=== PATIENT | male | born 1950 | race Caucasian/White ===

== ENCOUNTER → 2020-03-16 | Day surgery (SDC) | payer MEDICARE ==
[~2020-03-16] MED LIST: ACETAMINOPHEN TAB 325 MG TAB PO PRN; ALPRAZolam 0.25 MG TAB PO STA
[2020-03-16 09:45] LABS: Mean Platelet Volume 6.5; Platelet Count 396 k/uL (150-450)
[2020-03-16 09:54] LABS: INR 0.9 (<1.2); Prothrombin Time 9.6 sec (9.0-12.0)
--- NOTE | 2020-03-16 11:44 | P.OP ---
Date of Procedure: 03/16/20 Preoperative Diagnosis: liver mass, colorectal mass Procedure(s) Performed: ultrasound guided 18G core biopsy of right liver Anesthesia: local Surgeon: Karol Luciano Estimated Blood Loss (ml): 0 Pathology: other (4 18G core specimens sent for histopathology) Condition: stable Disposition: observation
[2020-03-16 15:40] VITALS: RESP 16
[2020-03-16 15:44] VITALS: BP 129/67; PULSE 75
--- NOTE | 2020-03-16 17:21 | US ---
EXAMINATION TYPE: US biopsy liver DATE OF EXAM: 03/16/2020 HISTORY: Colorectal cancer, liver mass DIRECTOR OF GLOBAL TALENT: Dr. Karol Luciano PROCEDURE: Preliminary preprocedure ultrasound imaging demonstrates hyperechoic mass involving the right posteri or liver. The procedure was discussed with the patient. The risks, complications, benefits, and alternatives we re discussed and any questions were answered. Informed consent was obtained. Patient was positioned left posterior oblique. Maximal barrier technique was utilized. The skin overl marco antonio a suitable path to the liver was localized using ultrasound, the skin was prepped and draped. Ul trasound was utilized with sterile technique. Lidocaine was used for local anesthesia. A skin loretta ma de with a scalpel. Under direct ultrasound guidance, a 17-gauge introducer needle was advanced into the right liver, the stylet was removed, and 18-gauge core biopsy needle was advanced into the liver and core biopsy obtained. For core biopsy specimens were obtained, and submitted in formalin for his topathology. Hemostasis was achieved. There was no immediate complication and patient remained in sta ble condition. Post procedure ultrasound imaging demonstrates no significant hemorrhage. IMPRESSION: Status post ultrasound-guided 18-gauge core biopsy of the liver. Pathology pending.
--- NOTE | 2020-03-20 06:52 | CDI ---
Outpatient Documentation Clarification Form Date: 03/20/20 CDS/Legislative Analyst Name: Janae Blackman Phone: If any questions, call Adelia Renae Hse Specialist at [phone] Patient Name: Juan Daniel Ibarra Admit Date: 03/16/20 Discharge Date: 03/16/20 ATTENTION: The [facility] Coding Staff appreciate your assistance in clarifying documentation. Please respond to the clarification below the line at the bottom and electronically sign. The [facility] Coding staff will review the response and follow-up if needed. Please note: Queries are made part of the Legal Health Record. If you have any questions, please contact the Hse Specialist. Dear Dr. Luciano, Please provide clarification as to what imaging guidance was used during the biopsy. Physician order indicates CAT scan guidance liver biopsy. Procedure note indicates Ultrasound biopsy. Please clarify. Thank you for your kind consideration. MTDD
== END ==
LOC: RADPROMAIN 08:41
PROVIDERS: ATTEND Internal Medicine Hematology & Oncology
DX: C78.7 Secondary malignant neoplasm of liver and intrahepatic bile duct (principal)
CPT/HCPCS: 36415; 47000; 76942; 85049; 85610; 88307; 88341; 88342

== ENCOUNTER → 2020-05-09 | Outpatient (CLI) | payer MEDICARE ==
--- NOTE | 2020-05-11 08:38 | MR ---
EXAMINATION TYPE: MR abdomen wo/w con DATE OF EXAM: 05/09/2020 COMPARISON: PET CT February 21, 2020 HISTORY: Rectal cancer, colon cancer, liver abnormality. Colon cancer metastatic to liver diagnosed on biopsy March 16, 2020. Interval chemotherapy. CONTRAST: Standard multiplanar, multisequence MRI departmental protocol utilizing 7 mL intravenous Gadavist quintin olinium contrast. Imaging is performed of the abdomen focusing on the liver. FINDINGS: Liver: Liver remains normal in size. Large heterogeneous mass occupying majority of the right hepatic lobe posterior segment superior aspect shows marked interval improvement in current MRI, residual ro ughly 7 cm transverse by 5 cm AP diameter by 6.0 cm craniocaudal diameter axial image 75 series 9 and on coronal image 66 series 1001 is diminished in size from prior PET/CT. There is heterogeneous enha ncement with irregular rim-type enhancement on delayed images with suggestion of small nodules and/or lobulated peripheral margins along the periphery similar to prior PET/CT. Single 2.5 cm lesion in th e posterior inferior aspect image 420 series 901 and smaller lesion right anterior inferior image for reference series 901 image 395 are most identified inferior right hepatic lobe lesions. All lesions involved appear to be posterior to the right branch of the portal vein. Patency of the portal vein is identified. Patent hepatic veins draining into IVC are seen. No surrounding ascites. No ductal dilat ation. More importantly no definitive new enhancing lesions with washout in the left hepatic lobe. Other: Lung bases are grossly clear. Debris filled stomach. Pancreas and both adrenal glands are with in normal limits. No concerning renal mass or hydronephrosis. No suspicious bowel dilatation. No intr a-abdominal ascites. Visualized osseous structures are intact. IMPRESSION: Interval improvement in the irregular mass or metastatic lesion posterior right hepatic l obe. No new metastatic disease identified with particular attention to the left hepatic lobe.
== END | disposition home or self-care (01) ==
LOC: RADMRIMAIN 14:12
PROVIDERS: ATTEND Internal Medicine Hematology & Oncology
DX: C20 Malignant neoplasm of rectum (principal); C18.7 Malignant neoplasm of sigmoid colon
CPT/HCPCS: 74183; A9585

== ENCOUNTER → 2020-07-01 | Outpatient (CLI) | payer MEDICARE ==
--- NOTE | 2020-07-01 13:46 | CT ---
EXAMINATION TYPE: CT ChestAbdPelvis w con DATE OF EXAM: 07/01/2020 COMPARISON: PET/CT February 21, 2020 HISTORY: Rectal cancer metastatic to liver. Currently on chemotherapy. CT DLP: 638.1 mGycm. Automated Exposure Control for Dose Reduction was Utilized. CONTRAST: CT scan of the thorax, abdomen and pelvis is performed with IV Contrast, patient injected with 100 mL of Isovue M300. FINDINGS: LUNGS: The lungs remain grossly clear, there is no concerning parenchymal mass or nodule identified. There is no pleural effusion or pneumothorax seen. The tracheobronchial tree is patent. MEDIASTINUM: There are no greater than 1 cm hilar or mediastinal lymph nodes. No cardiomegaly or pe ricardial effusion is seen. Moderate coronary artery calcification is present. Ascending aorta measu res up to 3.8 cm in diameter axial image 29. OTHER: New right subclavian Mediport catheter terminates in SVC. LIVER/GB: Visualized liver is heterogeneously hypodense on current study. Marked interval improvement in the right posterior arch mass or metastatic lesion there is some calcification along superior asp ect. There are some new capsular retraction. Lesion measures 5.7 cm long axis axial image 60 on curre nt study. The lesion measured roughly 13 cm long axis on prior PET/CT. Some minimal lateral right mid lung calcification with capsular retraction axial image 67 noted. No new masses clearly seen. PANCREAS: No significant abnormality is seen. SPLEEN: No significant abnormality is seen. ADRENALS: No significant abnormality is seen. KIDNEYS: No significant abnormality is seen. BOWEL: There is moderate to severe contrast-filled gastric distention on current study. No suspicious dilatation of duodenal sweep. No abnormal small or large bowel loop dilatation. Oral contrast does n ot reach level of terminal ileum making evaluation of distal bowel slightly subtle optimal. Prominent fat density ileocecal valve seen. There is a mild to moderate wall thickening proximal to mid sigmoi d colon redemonstrated and should be correlated with colonoscopy, this may correlate with the misregi stration on prior PET/CT. Fluid-filled sigmoid colon with air-fluid levels could reflect diarrhea and /or mild uncomplicated acute colitis, correlate clinically. Marked interval improvement in prior visu alized severe hypermetabolic wall thickening in the sigmoid rectal colon posterior to the prostate gl and on prior PET/CT. GENITAL ORGANS: Normal-sized prostate. A few tiny right-sided pelvic phleboliths. LYMPH NODES: No new greater than 1cm abdominal or pelvic lymph nodes are appreciated. OSSEOUS STRUCTURES: Moderate to severe disc space narrowing L3-L4 level. Trjh-rz-egjidchy disc space narrowing at L4-L5 and L5-S1 levels with vacuum disc phenomenon. Slight scoliotic curvature. Multilev el spurring in the spine. OTHER: Moderate mixed plaque of the aorta extends into branch vessels. IMPRESSION: Positive treatment response in the sigmoid rectal neoplasm and large hepatic metastatic l esion. No new suspicious mass or adenopathy noted. Correlate for gastroparesis or outlet obstruction . Correlate for uncomplicated colitis.
== END | disposition home or self-care (01) ==
LOC: RADCTMAIN 10:57
PROVIDERS: ATTEND Internal Medicine Hematology & Oncology
DX: Z03.89 Encounter for observation for other suspected diseases and conditions ruled out (principal); C20 Malignant neoplasm of rectum; C18.7 Malignant neoplasm of sigmoid colon; C78.7 Secondary malignant neoplasm of liver and intrahepatic bile duct
CPT/HCPCS: 82565; 84520; 71260; 74177; 36415; Q9967 ×2

== ENCOUNTER → 2020-10-22 | Outpatient (CLI) | payer MEDICARE ==
[2020-10-22 11:12] LABS: African American GFR (CKD) >90 (>60 ml/min/1.73 sqM); Blood Urea Nitrogen 19 mg/dL (9-20); Non-African American GFR(CKD) 85 (>60 ml/min/1.73 sqM)
--- NOTE | 2020-10-22 19:55 | CT ---
EXAMINATION TYPE: CT ChestAbdPelvis wo/w con DATE OF EXAM: 10/22/2020 COMPARISON: 07/01/2020 and 02/21/2020 HISTORY: 70-year-old male C18.7, Colon CA, recent colon resection with colostomy TECHNIQUE: Contiguous axial scanning of the chest, abdomen, and pelvis performed without and with IV Contrast, patient injected with 100 mL of Isovue 300. Delayed images through the kidneys were obtain ed. Coronal/sagittal reconstructions performed. CT DLP: 1137.3 mGycm Automated exposure control for dose reduction was used. FINDINGS: CHEST: Heart normal size without pericardial effusion. LAD coronary artery calcifications are noted. Mild aneurysm ascending aorta 4.1 cm. In dimension arch vessel branching anatomy. Right anterior chest wall injection port with catheter tip at the mid SVC level. No thoracic lymphadenopathy by CT size criteria. No consolidation or pleural effusion. ABDOMEN: Has been interval right hepatectomy. Thickening and fluid along the resection margin likely postsurgi eva. There is a 2.0 cm nodular hypodense area along the posterior resection margin which should be re assessed at follow-up, refer to axial image 15 series 6 and axial image 16 and 17 of series 8. Possib le postsurgical change. Portal venous system is patent. Gallbladder is present with some layering gra soco. No biliary ductal dilatation. A right mid abdominal surgical drain is present. The drain extends back and down into the pelvis. Adrenal glands, kidneys, spleen, pancreas within normal limits. Normal appendix. Oral contrast progressed to the proximal sigmoid colon. Interval left lower quadrant sigmoid colostomy. No dilated small bowel, free fluid, or free air. A few stable calcified retroperitoneal lymph nodes. Moderate atherosclerotic plaque and calcification infrarenal abdominal aorta. However, a single mildly enlarged aortocaval retroperitoneal lymph node is now noted measuring 1.2 cm , axial image 83. PELVIS: Multiple for gallbladder wall thickening unchanged from 02/21/2020, likely chronic in this patient. P rominent presacral edema and fat stranding. Right paramedian perineal fluid locule measuring 2.4 cm w ith a small focus of air is noted. No pelvic lymphadenopathy seen. BONES: Mild degenerative change of the hips. Degenerative change at the SI joints. Moderate to advanced dege nerative disc disease L3-S1 levels. Osseous destructive process seen. IMPRESSION: 1. STATUS POST DISTAL COLON/RECTAL RESECTION AND LEFT LOWER QUADRANT SIGMOID COLOSTOMY. PRESACRAL ALEXX MA AND FAT STRANDING WELL A 2.4 CM LOCULE OF FLUID IN THE RIGHT PERINEUM ARE LIKELY POSTSURGICA L CHANGES. 2. STATUS POST RIGHT HEPATECTOMY. SOME FLUID AND SOFT TISSUE THICKENING ALONG THE HEPATECTOMY MARGIN LIKELY REFLECTS POSTSURGICAL CHANGE. GIVEN A MORE NODULAR AREA MEASURING 2.0 CM ALONG THE RESECTION M ARGIN, SHORT INTERVAL FOLLOW-UP RECOMMENDED TO EXCLUDE RESIDUAL DISEASE. 3. A NEW, MILDLY ENLARGED 1.2 CM AORTOCAVAL LYMPH NODE IN THE RETROPERITONEUM SHOULD ALSO BE REASSESS ED AT THAT TIME.
== END | disposition home or self-care (01) ==
LOC: RADCTMAIN 10:32
PROVIDERS: ATTEND Internal Medicine Hematology & Oncology
DX: I71.2 Thoracic aortic aneurysm, without rupture (principal); K63.89 Other specified diseases of intestine; R59.0 Localized enlarged lymph nodes; Z85.038 Personal history of other malignant neoplasm of large intestine
CPT/HCPCS: 82565; 84520; 71270; 74178; 36415; Q9967

== ENCOUNTER 2020-10-23 16:50 | Emergency (ER) | payer MEDICARE ==
[2020-10-23 17:00] VITALS: BP 131/74; PULSE 65; RESP 16; TEMP 98.4
[2020-10-23 17:41] LABS: Basophils % (A) 1 %; Eosinophils # (A) 0.3 k/uL (0-0.7); Eosinophils % (A) 5 %; HCT 34.8 % (39.0-53.0); HGB 11.7 gm/dL (13.0-17.5); Lymphocytes # (A) 1.8 k/uL (1.0-4.8); Lymphocytes % (A) 28 %; MCH 30.2 pg (25.0-35.0); MCHC 33.6 g/dL (31.0-37.0); MCV 89.8 fL (80.0-100.0); Mean Platelet Volume 6.8; Monocytes # (A) 0.5 k/uL (0-1.0); Monocytes % (A) 8 %; Neutrophils # (A) 3.6 k/uL (1.3-7.7); Neutrophils % (A) 57 %; Platelet Count 354 k/uL (150-450); RBC 3.88 m/uL (4.30-5.90); WBC 6.4 k/uL (3.8-10.6)
[2020-10-23 17:51] LABS: ALT 16 U/L (4-49); AST 30 U/L (17-59); African American GFR (CKD) >90 (>60 ml/min/1.73 sqM); Albumin 3.9 g/dL (3.5-5.0); Alkaline Phosphatase 166 U/L (38-126); Anion Gap 8 mmol/L; Blood Urea Nitrogen 22 mg/dL (9-20); Calcium 9.1 mg/dL (8.4-10.2); Carbon Dioxide 29 mmol/L (22-30); Chloride 101 mmol/L (98-107); Glucose 102 mg/dL (74-99); Lipase 150 U/L (23-300); Non-African American GFR(CKD) 88 (>60 ml/min/1.73 sqM); Potassium 4.1 mmol/L (3.5-5.1); Sodium 138 mmol/L (137-145); Total Bilirubin 0.2 mg/dL (0.2-1.3); Total Protein 6.6 g/dL (6.3-8.2)
[2020-10-23 17:55] LABS: INR 0.9 (<1.2); Partial Thromboplastin Time 24.7 sec (22.0-30.0); Prothrombin Time 9.5 sec (9.0-12.0)
--- NOTE | 2020-10-23 18:04 | ED ---
GI Bleed HPI - General Chief complaint: GI Bleed Stated complaint: blood in ostomy bag Time Seen by Provider: 10/23/20 17:14 Source: patient, RN notes reviewed Mode of arrival: ambulatory Limitations: no limitations - History of Present Illness Initial comments: 70-year-old male presents emergency Department with chief complaint of bleeding into his colostomy bag. Patient states he had surgery by Dr. Sung at [facility] and which she states she had colon resection for colon cancer with colostomy. Patient states she's been doing well he states he had no pain except remains to be pain free. He states he has a AMKI drain in which his been draining well. He reports no fevers chills night sweats. He states just an hour or so ago he noticed some bright red blood within his colostomy bag he states is not rapidly filling. He does admit that he is on Lovenox daily shots. Patient states the surgery was last month. Patient denies any shortness breath, chest pain, lightheadedness - Related Data Home Medications Medication Instructions Recorded Confirmed Atenolol [Tenormin] 50 mg PO DAILY 03/12/20 05/07/20 Allergies Allergy/AdvReac Type Severity Reaction Status Date / Time No Known Allergies Allergy Verified 10/23/20 17:00 Review of Systems ROS Statement: Those systems with pertinent positive or pertinent negative responses have been documented in the HPI. ROS Other: All systems not noted in ROS Statement are negative. Past Medical History Past Medical History: Cancer, GERD/Reflux, Hypertension Additional Past Medical History / Comment(s): Rectal bleeding, bright red, X4 months. Colorectal cancer History of Any Multi-Drug Resistant Organisms: None Reported Past Surgical History: Bowel Resection, Tonsillectomy Additional Past Surgical History / Comment(s): 1/2 liver removed Past Anesthesia/Blood Transfusion Reactions: No Reported Reaction Past Psychological History: No Psychological Hx Reported Smoking Status: Never smoker Past Alcohol Use History: None Reported, Occasional Past Drug Use History: Marijuana - Past Family History Mother Family Medical History: Cancer Additional Family Medical History / Comment(s): Breast Cancer. Father Family Medical History: No Reported History General Exam Limitations: no limitations General appearance: alert, in no apparent distress Head exam: Present: atraumatic, normocephalic, normal inspection Respiratory exam: Present: normal lung sounds bilaterally. Absent: respiratory distress, wheezes, rales, rhonchi, stridor Cardiovascular Exam: Present: regular rate, normal rhythm, normal heart sounds. Absent: systolic murmur, diastolic murmur, rubs, gallop, clicks GI/Abdominal exam: Present: soft, normal bowel sounds, other (Colostomy noted on the left side, there is partially 10 mL of blood within the colostomy bag, no obvious active sites of bleeding from the stoma). Absent: distended, tendernes s, guarding, rebound, rigid Back exam: Absent: CVA tenderness (R), CVA tenderness (L) Neurological exam: Present: alert Skin exam: Present: warm, dry, intact, normal color. Absent: rash Course Vital Signs 10/23/20 16:56 Temperature 98.4 F Pulse Rate 65 Respiratory 16 Rate Blood Pressure 131/74 O2 Sat by Pulse 100 Oximetry Medical Decision Making - Medical Decision Making I did discuss the case with patient's surgeon Dr. Sung who states is most likely related to irritation from the bag itself patient was doing more physical activity today including yard work. Patient is advised to rest, follow-up with surgeon surgeon did state that he would contact him for follow-up is return for any worsening bleeding has had no recurrence of bleeding since been in emergency department. - Lab Data Result diagrams: 10/23/20 17:27 10/23/20 17:27 Lab Results 10/23/20 10/23/20 10/23/20 Range/Units 17:27 17:27 17:27 WBC 6.4 (3.8-10.6) k/uL RBC 3.88 L (4.30-5.90) m/uL Hgb 11.7 L (13.0-17.5) gm/dL Hct 34.8 L (39.0-53.0) % MCV 89.8 (80.0-100.0) fL MCH 30.2 (25.0-35.0) pg MCHC 33.6 (31.0-37.0) g/dL RDW 14.0 (11.5-15.5) % Plt Count 354 (150-450) k/uL MPV 6.8 Neutrophils % 57 % Lymphocytes % 28 % Monocytes % 8 % Eosinophils % 5 % Basophils % 1 % Neutrophils # 3.6 (1.3-7.7) k/uL Lymphocytes # 1.8 (1.0-4.8) k/uL Monocytes # 0.5 (0-1.0) k/uL Eosinophils # 0.3 (0-0.7) k/uL Basophils # 0.0 (0-0.2) k/uL PT 9.5 (9.0-12.0) sec INR 0.9 (<1.2) APTT 24.7 (22.0-30.0) sec Sodium 138 (137-145) mmol/L Potassium 4.1 (3.5-5.1) mmol/L Chloride 101 (98-107) mmol/L Carbon Dioxide 29 (22-30) mmol/L Anion Gap 8 mmol/L BUN 22 H (9-20) mg/dL Creatinine 0.89 (0.66-1.25) mg/dL Est GFR (CKD-EPI)AfAm >90 (>60 ml/min/1.73 sqM) Est GFR (CKD-EPI)NonAf 88 (>60 ml/min/1.73 sqM) Glucose 102 H (74-99) mg/dL Plasma Lactic Acid Ricky (0.7-2.0) mmol/L Calcium 9.1 (8.4-10.2) mg/dL Total Bilirubin 0.2 (0.2-1.3) mg/dL AST 30 (17-59) U/L ALT 16 (4-49) U/L Alkaline Phosphatase 166 H (38-126) U/L Total Protein 6.6 (6.3-8.2) g/dL Albumin 3.9 (3.5-5.0) g/dL Lipase 150 (23-300) U/L 10/23/20 Range/Units 17:27 WBC (3.8-10.6) k/uL RBC (4.30-5.90) m/uL Hgb (13.0-17.5) gm/dL Hct (39.0-53.0) % MCV (80.0-100.0) fL MCH (25.0-35.0) pg MCHC (31.0-37.0) g/dL RDW (11.5-15.5) % Plt Count (150-450) k/uL MPV Neutrophils % % Lymphocytes % % Monocytes % % Eosinophils % % Basophils % % Neutrophils # (1.3-7.7) k/uL Lymphocytes # (1.0-4.8) k/uL Monocytes # (0-1.0) k/uL Eosinophils # (0-0.7) k/uL Basophils # (0-0.2) k/uL PT (9.0-12.0) sec INR (<1.2) APTT (22.0-30.0) sec Sodium (137-145) mmol/L Potassium (3.5-5.1) mmol/L Chloride (98-107) mmol/L Carbon Dioxide (22-30) mmol/L Anion Gap mmol/L BUN (9-20) mg/dL Creatinine (0.66-1.25) mg/dL Est GFR (CKD-EPI)AfAm (>60 ml/min/1.73 sqM) Est GFR (CKD-EPI)NonAf (>60 ml/min/1.73 sqM) Glucose (74-99) mg/dL Plasma Lactic Acid Ricky 0.8 (0.7-2.0) mmol/L Calcium (8.4-10.2) mg/dL Total Bilirubin (0.2-1.3) mg/dL AST (17-59) U/L ALT (4-49) U/L Alkaline Phosphatase (38-126) U/L Total Protein (6.3-8.2) g/dL Albumin (3.5-5.0) g/dL Lipase (23-300) U/L Disposition Clinical Impression: Stomal bleeding Disposition: HOME SELF-CARE Condition: Stable Instructions (If sedation given, give patient instructions): Colostomy Care (ED) Additional Instructions: Please return to the Emergency Department if symptoms worsen or any other concerns. Is patient prescribed a controlled substance at d/c from ED?: No Referrals: Smith Williamson MD [Primary Care Provider] - 1-2 days Time of Disposition: 18:58
== END 2020-10-23 19:09 | disposition home or self-care (01) ==
LOC: EC 16:50
DX: K94.01 Colostomy hemorrhage (principal); I10 Essential (primary) hypertension; K21.9 Gastro-esophageal reflux disease without esophagitis; F12.90 Cannabis use, unspecified, uncomplicated; Z79.01 Long term (current) use of anticoagulants; Z79.899 Other long term (current) drug therapy; Z80.3 Family history of malignant neoplasm of breast
CPT/HCPCS: 80053; 83605; 83690; 85025; 85610; 85730; 99283

== ENCOUNTER → 2021-03-04 | Outpatient (CLI) | payer MEDICARE ==
[2021-03-04 11:42] LABS: African American GFR (CKD) >90 (>60 ml/min/1.73 sqM); Blood Urea Nitrogen 17 mg/dL (9-20); Non-African American GFR(CKD) >90 (>60 ml/min/1.73 sqM)
--- NOTE | 2021-03-04 13:52 | CT ---
EXAMINATION TYPE: CT ChestAbdPelvis w con DATE OF EXAM: 03/04/2021 COMPARISON: Most recent CT October 22, 2020 and older studies HISTORY: Rectal cancer metastatic to liver CT DLP: 543.0 mGycm. Automated Exposure Control for Dose Reduction was Utilized. CONTRAST: CT scan of the thorax, abdomen and pelvis is performed with oral and with IV Contrast, patient inject ed with 100 mL of Isovue 300. FINDINGS: LUNGS: The lungs remain grossly clear, there is no concerning new greater than 5 mm parenchymal mass or nodule identified. There is no pleural effusion or pneumothorax seen. The tracheobronchial tree is patent. MEDIASTINUM: There are no greater than 1 cm hilar or mediastinal lymph nodes. No cardiomegaly or pe ricardial effusion is seen. Moderate coronary artery calcification is redemonstrated. Ascending aort a measures up to 4.0 cm in diameter axial image 33. OTHER: Stable right subclavian Mediport catheter. LIVER/GB: Visualized liver remains heterogeneously hypodense on current study. Postsurgical changes f rom partial right-sided hepatectomy redemonstrated. There is interval improvement in hypodensity michell g the surgical margin from most recent CT. No new masses clearly seen. Contracted gallbladder with intraluminal tiny gallstones redemonstrated. PANCREAS: No significant abnormality is seen. SPLEEN: No significant abnormality is seen. ADRENALS: No significant abnormality is seen. KIDNEYS: No significant abnormality is seen. BOWEL: Oral contrast reaches level of the hepatic flexure. Mild to moderate fecal prominence distal t o this to the left-sided ostomy. No abnormal small or large bowel loop dilatation. Mild wall thickeni ng terminal ileum redemonstrated. Persistent rectal stump with ill-defined fluid and fat stranding in the presacral region is nonspecific. Interval removal of percutaneous pelvic drainage catheter. Mild wall thickening in the right colon now present. GENITAL ORGANS: Normal-sized prostate. A few tiny right-sided pelvic phleboliths redemonstrated. LYMPH NODES: No new greater than 1cm abdominal or pelvic lymph nodes are appreciated. Interval decrea sed size to the enlarged aortocaval lymph node image 42 from prior study coronal image 41. OSSEOUS STRUCTURES: Moderate to severe disc space narrowing L3-L4 level redemonstrated. Moderate disc space narrowing at L4-L5 and L5-S1 levels with vacuum disc phenomenon. Slight scoliotic curvature re demonstrated. Multilevel spurring in the spine. OTHER: Moderate to severe mixed plaque of the aorta extends into branch vessels. IMPRESSION: Nonspecific findings presacral and rectal stump region stable favor surgical scarring. Im proved hypodense findings along the right hepatic surgical margin. No new masses identified. Improved single enlarged aortocaval lymph node. No new or enlarging masses or adenopathy identified to sugges t neoplastic progression.
== END | disposition home or self-care (01) ==
LOC: RADCTMAIN 10:58
PROVIDERS: ATTEND Internal Medicine Hematology & Oncology
DX: C20 Malignant neoplasm of rectum (principal); C78.7 Secondary malignant neoplasm of liver and intrahepatic bile duct
CPT/HCPCS: 82565; 84520; 71260; 74177; 36415; Q9967

== ENCOUNTER → 2021-05-27 | Outpatient (CLI) | payer MEDICARE ==
[2021-05-27 11:29] LABS: African American GFR (CKD) >90 (>60 ml/min/1.73 sqM); Blood Urea Nitrogen 13 mg/dL (9-20); Non-African American GFR(CKD) 82 (>60 ml/min/1.73 sqM)
--- NOTE | 2021-05-27 13:21 | CT ---
EXAMINATION TYPE: CT ChestAbdPelvis w con DATE OF EXAM: 05/27/2021 COMPARISON: Most recent CT March 04, [address] PET CT February 21, 2020 HISTORY: Rectal cancer metastatic to liver currently on chemotherapy. CT DLP: 571.3 mGycm. Automated Exposure Control for Dose Reduction was Utilized. CONTRAST: CT scan of the thorax, abdomen and pelvis is performed with oral and with IV Contrast, patient inject ed with 100 mL of Isovue M300. FINDINGS: LUNGS: The lungs remain grossly clear, there is no concerning new greater than 5 mm noncalcified pare nchymal mass or nodule identified. There is no pleural effusion or pneumothorax seen. The tracheob ronchial tree is patent. MEDIASTINUM: There are no new greater than 1 cm hilar or mediastinal lymph nodes. No cardiomegaly o r pericardial effusion is seen. Moderate coronary artery calcification is redemonstrated. Ascending aorta measures up to 4.1 cm in diameter axial image 31 is redemonstrated. OTHER: Stable right subclavian Mediport catheter. LIVER/GB: Visualized liver remains heterogeneously hypodense on current study. Postsurgical changes f rom partial right-sided hepatectomy redemonstrated. There is continued improvement in of regular slig htly hypodense tissue along the surgical margin from most recent CTs. Minimal residual nonspecific t issue lateral posterior aspect axial image 63 remains present. Stable few tiny adjacent hypodense are as axial image 62 for reference. No new or enlarging intrahepatic masses clearly seen. Somewhat Contr acted gallbladder with intraluminal tiny gallstones and/or gallbladder sludge redemonstrated. PANCREAS: No significant abnormality is seen. SPLEEN: No significant abnormality is seen. ADRENALS: No significant abnormality is seen. KIDNEYS: No significant abnormality is seen. BOWEL: Oral contrast reaches level of left sided colostomy. Mild to moderate wall thickening in the d istal colon near site of ostomy remains present. No abnormal small or large bowel loop dilatation. No rmal contrast-filled appendix incidentally noted. Persistent rectal stump with ill-defined soft tissu e in the presacral region is nonspecific. No significant interval change images 104 through 118 abnor mal soft tissue presacral region compared to most recent CT. GENITAL ORGANS: Poorly visualized prostate suspected inferior position redemonstrated. LYMPH NODES: Perhaps slightly more prominent 5 mm aortocaval lymph node current study axial image 83 versus most recent study axial image 84. OSSEOUS STRUCTURES: Moderate to severe disc space narrowing L3-L4 level redemonstrated. Moderate disc space narrowing at L4-L5 and L5-S1 levels with vacuum disc phenomenon is redemonstrated. Slight scol iotic curvature redemonstrated. Multilevel spurring in the spine. OTHER: Moderate to severe mixed plaque of the distal aorta extends into branch vessels. IMPRESSION: Nonspecific findings presacral and rectal stump region stable favor surgical scarring. Co ntinued Improved hypodense findings along the right hepatic surgical margin. No new intrahepatic mass es identified. The aortocaval lymph node is slightly larger and/or more prominent from most recent CT and needs to be closely followed. Otherwise no new or enlarging masses or adenopathy identified to s uggest neoplastic progression.
== END | disposition home or self-care (01) ==
LOC: RADCTMAIN 10:53
PROVIDERS: ATTEND Internal Medicine Hematology & Oncology
DX: C78.7 Secondary malignant neoplasm of liver and intrahepatic bile duct (principal); C18.7 Malignant neoplasm of sigmoid colon; C20 Malignant neoplasm of rectum
CPT/HCPCS: 82565; 84520; 71260; 74177; 36415; Q9967 ×2

== ENCOUNTER → 2021-08-25 | Outpatient (CLI) | payer MEDICARE ==
--- NOTE | 2021-08-25 16:59 | CT ---
EXAMINATION TYPE: CT ChestAbdPelvis w con DATE OF EXAM: 08/25/2021 COMPARISON: 05/27/2021 HISTORY: h/o liver, colon CA, f/u CT DLP: 890 mGycm CONTRAST: CT scan of the chest, abdomen and pelvis is performed with Oral Contrast and with IV Contrast, patien t injected with 100 mL of Isovue 300. CT Chest: LUNGS: The lungs are clear and free of infiltrate or atelectasis. No pulmonary nodule or mass is det ected. No pleural effusion or CT evidence of interstitial lung disease. MEDIASTINUM: Ascending thoracic aortic aneurysm is stable at 4.1 cm AP dimension. Moderate coronary a rtery calcifications redemonstrated. No evidence for mediastinal mass or adenopathy. HILAR STRUCTURES: No evidence for mass. No hilar adenopathy is appreciated. OTHER: No significant abnormality. CONTRAST CT ABDOMEN AND PELVIS FINDINGS: LIVER/GB: Partial right-sided hepatectomy is again noted. Mild hepatic heterogeneity seen without dis tinct mass. Layering gallstones noted. PANCREAS: No inflammation. No distinct mass. SPLEEN: No splenic enlargement. No lesion seen. ADRENALS: No nodule. No thickening. KIDNEYS/BLADDER: No hydronephrosis. No nephrolithiasis. No district renal mass. Wall thickening ur inary bladder may be related to cystitis. BOWEL: Left lower quadrant ostomy redemonstrated. Prominent presacral soft tissue and rectal stump so ft tissue remain stable. This is likely related to postsurgical scarring/post therapeutic scarring. GENITAL ORGANS: No gross abnormality. LYMPH NODES: No greater than 1cm abdominal or pelvic lymph nodes are appreciated. AORTA: No significant abnormality. OSSEOUS STRUCTURES: No significant abnormality is seen. OTHER: No significant additional abnormality is seen. IMPRESSION: 1. Surgical changes right hepatectomy with continued improved hypodensity along the surgical margin. No hepatic masses are present. 2. Persistent probable surgical scarring presacral region as noted. 3. Aortocaval lymph node appears to have improved and is less than 1 cm in size.
== END | disposition home or self-care (01) ==
LOC: RADPROMAIN 13:41
PROVIDERS: ATTEND Internal Medicine Hematology & Oncology
DX: C20 Malignant neoplasm of rectum (principal); Z85.038 Personal history of other malignant neoplasm of large intestine
CPT/HCPCS: 82565; 84520; 71260; 74177; 36415; J1642; Q9967

== ENCOUNTER → 2021-11-19 | Outpatient (CLI) | payer MEDICARE ==
--- NOTE | 2021-11-21 22:44 | CT ---
EXAMINATION TYPE: CT ChestAbdPelvis w con DATE OF EXAM: 11/19/2021 COMPARISON: 08/25/2021, 05/27/2021 HISTORY: 71-year-old male C20, observation for mets. History of liver and colon cancer TECHNIQUE: Contiguous axial scanning of the chest, abdomen, and pelvis performed with IV Contrast, pa tient injected with 100 mL of Isovue 300. Delayed images through the kidneys were obtained. Coronal/s agittal reconstructions performed. CT DLP: 943.70 mGycm Automated exposure control for dose reduction was used. FINDINGS: CHEST: Heart normal size without pericardial effusion. LAD coronary artery calcifications are present and ar e remarkable for coronary artery disease. Stable mild aneurysm ascending aorta 4.2 cm. Conventional arch vessel branching anatomy. Right anterior chest wall injection for catheter tip in the upper SVC. Mild bilateral gynecomastia redemonstrated. No thoracic lymphadenopathy by CT size criteria. Minimal biapical pleural-parenchymal scarring. No consolidation or pleural effusion. ABDOMEN: Redemonstrated are changes of partial right hepatectomy. No focal liver lesion is identified. Portal venous system is. No discrete abnormality. Small layering gallstones no abnormal gallbladder distention. Adrenal glands, kidneys, spleen, and pancreas within normal limits. An aortocaval lymph node is unchanged at 9 mm. Previous calcified aorta caval lymph node also unchang ed. No increasing mesenteric or retroperitoneal lymphadenopathy. Mild fusiform ectasia infrarenal abdominal aorta to 2.6 cm unchanged. No dilated small bowel, free fluid, or free air. There is moderate stool burden. Left lower quadrant sigmoid colostomy. Normal appendix. PELVIS: Moderate circumferential bladder wall thickening is similar, probably posttreatment change. The degre e of presacral soft tissue thickening measuring up to 1.9 cm is unchanged. No pelvic lymphadenopathy or abnormal fluid collection seen. BONES: Mild degenerative change of the hips. Degenerative changes bilateral SI joints. Degenerative disc dis ease L4-L5 and L5-S1 with facet arthropathy. Slight S-shaped curvature of thoracic spine. No osseous destructive process. IMPRESSION: 1. STABLE CHANGES OF PARTIAL RIGHT HEPATECTOMY. NO FOCAL LIVER LESION SEEN. 2. THE 9 MM LYMPH NODE REMAINS STABLE FROM 08/25/2021. HOWEVER, WE NOTE IT TO BE SLIGHTLY LARGER COMPAR ED TO 05/27/2021. ONGOING FOLLOW-UP RECOMMENDED. NO INCREASING MESENTERIC OR RETROPERITONEAL LYMPHADENO ADILENE AT THIS TIME. 3. DISTAL COLON RESECTION WITH LEFT LOWER QUADRANT SIGMOID COLOSTOMY REDEMONSTRATED. THE DEGREE OF NE ESACRAL SOFT TISSUE THICKENING REMAINS UNCHANGED. NO EVIDENT DISEASE PROGRESSION AT THIS TIME. 4. INCIDENTAL: LAD CORONARY ARTERY CALCIFICATIONS, STABLE MILD ANEURYSM ASCENDING AORTA AT 4.2 CM, CH OLELITHIASIS, AND MODERATE STOOL BURDEN.
== END | disposition home or self-care (01) ==
LOC: RADPROMAIN 13:46
PROVIDERS: ATTEND Internal Medicine Hematology & Oncology
DX: C20 Malignant neoplasm of rectum (principal); K80.20 Calculus of gallbladder without cholecystitis without obstruction
CPT/HCPCS: 82565; 84520; 71260; 74177; 36415; Q9967

== ENCOUNTER → 2022-02-28 | Outpatient (CLI) | payer MEDICARE ==
--- NOTE | 2022-02-28 10:47 | US ---
EXAMINATION TYPE: US abdomen complete DATE OF EXAM: 02/28/2022 COMPARISON: CT chest abdomen pelvis 11/19/2021. CLINICAL HISTORY: R10.11 RUQ PAIN. RUQ pain since Covid diagnosis last month, h/o rectal CA with hepa tectomy and h/o cholelithiasis TECHNIQUE: Multiple sonographic images of the abdomen are obtained. FINDINGS: EXAM MEASUREMENTS: Liver Length: 12.4 cm Gallbladder Wall: 0.2 cm CBD: 0.5 cm Spleen: 9.8 cm Right Kidney: 9.5 x 4.0 x 4.9 cm Left Kidney: 9.1 x 5.6 x 5.1 cm Pancreas: limited views appear wnl Liver: Postsurgical changes from right hepatectomy . No focal lesions. Noncirrhotic morphology. Gallbladder: Abraham sludge with small shadowing calculi. No wall thickening or cholecystic fluid. Evidence for sonographic Cavazos's sign: no CBD: wnl Spleen: wnl Right Kidney: wnl . No hydronephrosis, shadowing calculi, or contour deforming solid mass. Left Kidney: wnl . No hydronephrosis, shadowing calculi, or contour deforming solid mass. Upper IVC: wnl Abd Aorta: No abdominal aortic aneurysm. Ectasia of the distal aorta measuring up to 2.2 cm. IMPRESSION: 1. No acute process. 2. Post surgical changes from right hepatectomy. 3. Cholelithiasis without evidence for acute cholecystitis.
== END | disposition home or self-care (01) ==
LOC: RADUSWWP 08:08
PROVIDERS: ATTEND Internal Medicine
DX: R10.11 Right upper quadrant pain (principal)
CPT/HCPCS: 76700

== ENCOUNTER → 2022-03-29 | Outpatient (CLI) | payer MEDICARE ==
--- NOTE | 2022-03-29 13:37 | CT ---
EXAMINATION TYPE: CT ChestAbdPelvis w con DATE OF EXAM: 03/29/2022 COMPARISON: 11/19/2021, 08/25/2021, 05/27/2021 HISTORY: 71-year-old male C20, LIVER/COLON CA TECHNIQUE: Contiguous axial scanning of the chest, abdomen, and pelvis performed with IV Contrast, pa tient injected with 100 mL of Isovue 300. Delayed images through the kidneys were obtained. Coronal/s agittal reconstructions performed. CT DLP: 906.8 mGycm Automated exposure control for dose reduction was used. FINDINGS: CHEST: Heart normal size without pericardial effusion. LAD coronary artery calcifications are present and ar e unremarkable for coronary artery disease. Ascending aorta mildly aneurysmal at 4.0 cm, unchanged. Conventional arch vessel branching anatomy. Right anterior chest wall injection port with catheter tip at the mid SVC. No thoracic lymphadenopathy by CT size criteria. A tiny 3 mm posterior right upper lobe pulmonary nodule is unchanged. No consolidation or pleural eff usion. ABDOMEN: Redemonstrated partial right hepatectomy no focal liver lesion is seen. Portal venous system is paten t. No biliary ductal dilatation. Some layering gravel or tiny gallstones of the fundus of the gallbladder. No abnormal gallbladder dis tention. Adrenal glands, kidneys, spleen, and pancreas within normal limits. No dilated small bowel, free fluid, or free air. The previous 9 mm pericaval lymph node in the retroperitoneum has decreased in size now measuring 7 m m. No new mesenteric or retroperitoneal lymphadenopathy seen. There is moderate stool burden. Distal colon resection with left mid abdominal sigmoid colostomy. Mil d colonic wall thickening and possible minimal pericolic fat stranding at the level of the ostomy, ax ial image 82 and 83. PELVIS: Redemonstrated presacral soft tissue thickening up to 1.8 cm. No abnormal fluid collection in the pel vis or pelvic lymphadenopathy. Fat stranding in the upper pelvis and lower abdominal peritoneum has s lightly increased in the interval, for example, axial image 98 through 101. BONES: Mild degenerative change of the hips. Degenerative changes bilateral SI joints. Moderate to advanced degenerative disc disease mid to lower lumbar spine with facet arthropathy. No osseous destructive pr ocess seen. IMPRESSION: 1. REDEMONSTRATED POSTSURGICAL CHANGES OF DISTAL COLON RESECTION WITH LEFT MIDABDOMINAL SIGMOID COLOS CELE. THERE MAY BE MILD WALL THICKENING AND STRANDY INFLAMMATION AT THE COLOSTOMY SEGMENT OF BOWEL. C ORRELATE TO EXCLUDE A NONSPECIFIC MILD COLITIS HERE. 2. PRESACRAL SOFT TISSUE THICKENING REMAINS UNCHANGED. SOME STRANDY DENSITY/EDEMA IN THE UPPER PELVIS AND LOWER ABDOMEN MAY BE SLIGHTLY INCREASED AND COULD REFLECT PROGRESSIVE POST RADIATION THERAPY FANG NGE. 3. STABLE PARTIAL RIGHT HEPATECTOMY. NO EVIDENCE FOR DISEASE PROGRESSION. THE PREVIOUSLY MENTIONED 9 MM AORTOCAVAL LYMPH NODE HAS DECREASED IN SIZE.
== END | disposition home or self-care (01) ==
LOC: RADPROMAIN 09:53
PROVIDERS: ATTEND Internal Medicine Hematology & Oncology
DX: C20 Malignant neoplasm of rectum (principal); Z03.89 Encounter for observation for other suspected diseases and conditions ruled out; M79.89 Other specified soft tissue disorders; R60.9 Edema, unspecified; R59.0 Localized enlarged lymph nodes; Z93.3 Colostomy status; Z90.49 Acquired absence of other specified parts of digestive tract
CPT/HCPCS: 82565; 84520; 71260; 74177; 36415; Q9967

== ENCOUNTER → 2024-05-10 | Outpatient (CLI) | payer MEDICARE ==
[2024-05-10 16:50] LABS: NT-Pro-B-Type Natriuretic Pept 58 pg/mL (0-125)
[2024-05-10 16:52] LABS: HCT 45.2 % (39.6-50.0); HGB 14.3 g/dL (13.0-17.0); MCHC 31.6 g/dL (32.0-37.0); Mean Platelet Volume 9.6 FL (9.5-12.2); NRBC Per 100 WBC 0 X 10*3/uL (0.00-0.01); Platelet Count 218 X 10*3/uL (140-440); RBC 4.61 X 10*6/uL (4.40-5.60); RDW 12.1 % (11.5-14.5); WBC 6.32 X 10*3/uL (4.50-10.00)
[2024-05-10 17:08] LABS: ALT 19 U/L (10-49); AST 26 U/L (14-35); Albumin 4.4 g/dL (3.8-4.9); Albumin/Globulin Ratio 1.63 Ratio (1.60-3.17); Alkaline Phosphatase 75 U/L (41-126); BUN/Creat Ratio 13.92 Ratio (12.00-20.00); Blood Urea Nitrogen 18.1 mg/dL (9.0-27.0); Calcium 9.1 mg/dL (8.7-10.3); Carbon Dioxide 26.2 mmol/L (21.6-31.8); Chloride 107 mmol/L (96-109); Chol/HDL Ratio 3.15 Ratio; Globulin 2.7 g/dL (1.6-3.3); Glucose 107 mg/dL (70-110); LDL Cholesterol,Calculated 91.6 mg/dL (0.0-131.0); Potassium 4.5 mmol/L (3.5-5.5); Sodium 143 mmol/L (135-145); Total Bilirubin 0.4 mg/dL (0.3-1.2); Total Protein 7.1 g/dL (6.2-8.2)
== END | disposition home or self-care (01) ==
LOC: LABWHC1 08:59
PROVIDERS: ATTEND Family Medicine
DX: I25.10 Atherosclerotic heart disease of native coronary artery without angina pectoris (principal); I50.9 Heart failure, unspecified; E11.9 Type 2 diabetes mellitus without complications
CPT/HCPCS: 36415; 80053; 80061; 83036; 83880; 84443; 85027